=== PATIENT | female | born 1950 | race Caucasian/White ===

== ENCOUNTER 2017-05-19 15:21 | Outpatient (RCR) | payer MEDICARE, MEDICAID, SELFPAY ==
--- NOTE | 2017-05-19 15:53 | HMH.RHOPSOAP ---
Rehab OP Soap Note Rehab OP SOAP Start: 05/19/17 15:48 Freq: Status: Active Protocol: Document 05/19/17 15:48 ZARINA (Rec: 05/19/17 15:53 ZARINA [id number]) Electronically Signed By Herminio Mejia, PT 05/19/17 15:48 Rehab OP SOAP Subjective Subjective PT PRESENTS FOR W/C EVAL 2NDRY TO MS, MM WEAKNESS, LUMBAR SPONDYLOSIS, AND PHYSICAL DEBILITY Objective Objective Notes W/C EVAL EXECUTED IN CONJUNCTION WITH SOLOMON GOTTLIEB, REHAB MEDICAL Assessment Tolerated Treatment Well Plan Plan DC Patient Therapy time and Billing Physical Therapy Treatment Start Time 15:30 Physical Therapy Treatment End Time 15:50 Total Treatment Time 20 Scooter/Electric WC Eval Time 15 Scooter/Electric WC Billing Units 1 Medicare? Yes
== END 2017-05-19 15:22 | disposition home or self-care (01) ==
LOC: PT 15:21
PROVIDERS: Family Provider Internal Medicine Adolescent Medicine; Visit Provider Nurse Practitioner Family
DX: G35 Multiple sclerosis (principal); M62.81 Muscle weakness (generalized); M43.06 Spondylolysis, lumbar region; R53.81 Other malaise
CPT/HCPCS: 97542

== ENCOUNTER 2019-05-06 14:12 | Inpatient (IN) ==
--- NOTE | 2019-05-06 14:12 | Emergency Department Note ---
ED Disposition Clinical Impression: Dehydration, Multiple sclerosis, Hypokalemia Upper respiratory infection Qualifiers: URI type: unspecified URI Qualified Code(s): J06.9 - Acute upper respiratory infection, unspecified Pressure ulcer Qualifiers: Pressure injury location: unspecified location Pressure injury stage: unspecified pressure injury stage Qualified Code(s): L89.90 - Pressure ulcer of unspecified site, unspecified stage Fall Qualifiers: Encounter type: initial encounter Qualified Code(s): W19.XXXA - Unspecified fall, initial encounter Disposition: Admitted as Observation Condition on Discharge: Fair - Critical Care Critical Care Time: No Attestation: On , the high probability of a clinically significant, sudden or life threatening deterioration of the following system(s) required my full and direct attention, intervention and personal management. The time I documented below is in addition to time spent performing reported procedures but includes the following listed in this critical care notation. Medical Decision Making - Rajesh Inquiry Pt receiving controlled substance: No Vital Signs: 05/06/19 14:10 05/06/19 15:40 05/06/19 16:00 Temperature 98.2 F 99.9 F H 100.1 F H Temperature Source Oral Rectal Rectal Pulse Rate [Right] 93 H 93 H Respiratory Rate 20 20 Blood Pressure [Right Arm] 161/89 H 142/72 H Blood Pressure Mean [Right Arm] 113 95 02 Sat by Pulse Oximetry 96 92 L Oxygen Delivery Method Room Air - Lab Data Lab Results 05/06/19 14:48: Total Creatine Kinase 974 H*, Troponin I 0.03 05/06/19 14:48: Urine Color Yellow, Urine Appearance Clear, Urine pH 6.5, Ur Specific [place] 1.025, Urine Protein 1+, Urine Glucose (UA) Negative, Urine Ketones 2+, Urine Blood 2+, Urine Nitrate Negative, Urine Bilirubin 2+ A, Urine Urobilinogen 0.2, Ur Leukocyte Esterase Negative, Urine RBC 3-5, Urine WBC Occasional, Ur Squamous Epith Cells Occasional, Urine Bacteria Trace 05/06/19 14:48: WBC 10.7, RBC 5.11, Hgb 15.7, Hct 46.8, MCV 91.6, MCH 30.8, MCHC 33.6, RDW 12.3, Plt Count 223, MPV 9.3, Neut % (Auto) 88.0 H, Lymph % (Auto) 6.8 L, [place] % (Auto) 5.0, Eos % (Auto) 0.2, Baso % (Auto) 0.1, Neut # (Auto) 9.4 H, Lymph # (Auto) 0.7, [place] # (Auto) 0.5, Eos # (Auto) 0.0, Baso # (Auto) 0.0, Total Counted 100, Neutrophils % (Manual) 81 H, Lymphocytes % (Manual) 9 L, Monocytes % (Manual) 8, Metamyelocytes % 2.0 H, Platelet Estimate Normal, RBC Morphology Normal 05/06/19 14:48: Sodium 147 H, Potassium 3.0 L, Chloride 106, Carbon Dioxide 32 H , Anion Gap 12.0, BUN 46 H, Creatinine 0.80, Estimated Creat Clear 39, Estimated GFR 72, Est GFR ( Amer) 87, Glucose 126 H, Calcium 10.4 H, Total Bilirub in 1.3, AST 121 H, ALT 90 H, Alkaline Phosphatase 80, Total Protein 7.7, Albumin 4.3, Globulin 3.4 H, Albumin/Globulin Ratio 1.3 05/06/19 14:48: Lactate 1.3 05/06/19 14:48: Influenza Type A Ag Negative, Influenza Type B Ag Negative 05/06/19 14:48: Group A Strep Rapid Negative Result diagrams: 05/06/19 14:48 05/06/19 14:48 Orders (Tests/Meds): ED MEDICATIONS Generic Name Dose Route Start Last Admin Trade Name Freq PRN Reason Stop Dose Admin Acetaminophen 650 mg 05/06/19 17:03 Acetaminophen 325mg Tab PO 06/05/19 17:02 Q4HP PRN As Needed for Fever or Pain Levofloxacin/Dextrose 750 mg in 150 mls @ 100 mls/hr 05/06/19 17:15 Levofloxacin 750mg/150ml Premix IV 05/20/19 17:14 Q24H STAN Protocol Sodium Chloride 1,000 mls @ 100 mls/hr 05/06/19 17:15 Sod Chlor 0.9% 1000ml Bag IV 06/05/19 17:14 .Q10H STAN Ondansetron HCl 4 mg 05/06/19 17:03 Zofran 4mg/2ml Vial IV 06/05/19 17:02 Q8HP PRN Nausea Sodium Chloride 10 ml 05/06/19 17:03 Saline Flush 10ml Syringe IV 06/05/19 17:02 NEEDED PRN Maintain IV Site Discontinued Medications Generic Name Dose Route Start Last Admin Trade Name Gian PRN Reason Stop Dose Admin Acetaminophen 650 mg 05/06/19 16:11 05/06/19 16:12 Acetaminophen 325mg Tab PO 05/06/19 16:12 650 mg ONCE ONE Administration Potassium Chloride 40 meq 05/06/19 16:25 Klor-Con 20meq Tablet PO 05/06/19 16:26 ONCE ONE Sodium Chloride 1,000 ml 05/06/19 14:36 05/06/19 15:26 Sod Chlor 0.9% 1000ml Bag IV 05/06/19 14:37 1,000 ml BOLUS ONE Administration Tetanus/Diphtheria Toxoids 0.5 ml 05/06/19 17:01 Tenivac 0.5ml Syringe IM 05/06/19 17:02 .ONCE ONE ORDERS Category Date Time Status Troponin I Q3H Lab 05/06/19 17:30 Ordered Troponin I Q3H Lab 05/06/19 20:30 Ordered Blood Culture Stat Micro 05/06/19 14:48 Received Strep Screen Confirmation Stat Micro 05/06/19 14:48 Received ECG Request by /Brijesh Stat Y 05/06/19 14:28 Ordered - Radiology Data #1 Image(s): Chest, Pelvis, Hip, Knee (bilateral) Image Reviewed: Yes I have reviewed radiologist's interpretation Preliminary Findings: Normal/NAD - CT Data CT Scan: Head, C-Spine Time Received: 15:[address] Reviewed: Yes: I have viewed the radiologist's interpretation Preliminary Findings: Normal/NAD - ECG Data Tracing #1 EKG interpreted by Rigo Mack MD: Significant artifact present, limiting interpretation Rhythm: sinus Rate: 83 [place]: normal Ectopy: none Conduction: normal ST Segment Changes: Nonspecific T Wave Changes: Nonspecific Q Waves: none No evidence of acute ischemia or injury - Physician Consults Physician Consulted: Lidia Akins Time: 15:59 Reason -: Admission Comment/Response: Agrees to admit the patient to the hospital. We discussed the patient's clinical information, including history, exam, laboratory and radiology results and ED course. Per hospital procedure, I will write temporary bridge inpatient orders on the patient. Levaquin. Specific orders requested by the admitting physician: General Adult HPI - General Chief complaint: Fall Stated complaint: FALL Time Seen by Provider: 05/06/19 14:22 - History of Present Illness HPI narrative: Brought in by [facility]. The patient is a poor historian. She has MS. She says that she fell while getting out of the shower. She is uncertain of the time/day, initially stating it was , but later estimating that it was 4 to 5 days ago, which appears more consistent with her wounds. She apparently is in a wheelchair, but able to transfer herself. She says that when she fell she had to scoot herself on the carpet causing skin wounds to her knees, left hip area. He says she also hit the left side of her face. She also says for the past 3-year-old or 4 days she has been sick with a fever. She says she has nausea, but thinks it is because her mouth is dry. She is noted to be coughing and says she has had some shortness of breath, but also blames that on dry mouth and throat. She denies diarrhea. - Related Data Home Medications Medication Instructions Recorded Confirmed No Known Home Medications 05/06/19 05/06/19 Unobtainable 05/06/19 05/06/19 Allergies Allergy/AdvReac Type Severity Reaction Status Date / Time No Known Allergies Allergy Unverified 01/27/17 14:38 [facility] History - Hepatitis A Screen Attestation statement:: This patient has been screened for Hepatitis A risk factors. I have reviewed the patient's past medical history: Yes ROS Obtained: Yes All systems reviewed & no additional complaints - Constitutional Constitutional: Reports fever(s) - Cardiovascular Cardiovascular: Denies chest pain - Respiratory Respiratory: Yes cough, Yes dyspnea - Gastrointestinal Gastrointestingal: Denies: abdominal pain, diarrhea, vomiting - Musculoskeletal Musculoskeletal: Reports as per HPI Physical Exam - General General appearance: alert, in no apparent distress, cachectic - Head Head exam: atraumatic, normocephalic - Eye Eye exam: Present: normal appearance, EOMI - ENT ENT exam: Present: mucous membranes dry - Neck Neck exam: Present: normal inspection, trachea midline - Chest Chest inspection: Present: normal inspection, symmetric chest wall rise - Respiratory Respiratory exam: Present: normal lung sounds bilaterally. Absent: respiratory distress - Cardiovascular Cardiovascular exam: Present: regular rate, normal rhythm, normal heart sounds - Abdominal Exam Abdominal exam: Present: soft. Absent: distention, tenderness - Extremities Exam Extremities exam: Present: normal capillary refill - Neurological Exam Neurological exam: Present: alert - Psychiatric Psychiatric exam: Present: normal affect, normal mood - Skin Skin exam: Present: warm, dry - Other Other exam information: Hand sized areas of erythema with eschars on the left side of both knees and left lateral hip consistent with friction ann and pressure ulcers. The eschar on the hip is black and necrotic appearing. She has some mild skin breakdown over the sacrum as well.
[2019-05-06 16:06] LABS: Microscopic, Urine URINE MICROSCOPIC (MICROSCOPIC)
[2019-05-06 16:11] LABS: Basophils % 0.1 % (0.1-2.0); Eosinophils % 0.2 % (0.1-12.0); Hematocrit 46.8 % (37.0-47.0); Hemoglobin 15.7 g/dL (12.2-16.2); Lymphocytes # 0.7 K/mm3 (0.7-4.5); Lymphocytes % 6.8 % (10-50); Mean Corpuscular HGB Conc 33.6 g/dL (31.8-35.4); Mean Corpuscular Volume 91.6 fl (81-99); Mean Platelet Volume 9.3 fl (7.4-10.4); Monocytes # 0.5 K/mm3 (0.1-1.0); Neutrophils # 9.4 K/mm3 (1.8-7.8); Platelet Count 223 K/mm3 (142-424); Red Blood Count 5.11 M/mm3 (4.20-5.40); Red Cell Distribution Width 12.3 % (11.5-17.5); White Blood Count 10.7 K/mm3 (4.8-10.8)
[2019-05-06 16:16] LABS: Albumin Level 4.3 g/dl (3.5-5.0); Albumin/Globulin Ratio 1.3 (1.1-1.8); Bilirubin,Total 1.3 mg/dl (0.2-1.3); Calcium 10.4 mg/dl (8.4-10.2); Globulin 3.4 g/dL (1.3-3.2); Total Protein,Serum 7.7 g/dl (6.3-8.2)
[2019-05-06 16:25] LABS: Appearance,Urine CLEAR (Clear); Blood, Urine 2+ (Negative); Color,Urine YELLOW (Yellow); Glucose,Urine (UA) Negative (Negative); Ketones,Urine 2+ (Negative); Leukocyte Esterase,Urine Negative (Negative); PH,Urine 6.5 (5.0-8.5); Protein,Urine 1+ (Negative); Specific Gravity, Urine 1.025 (1.005-1.030); Urobilinogen,Urine 0.2 EU/dl (0.2)
[2019-05-06 16:37] LABS: Bilirubin,Urine 2+ (Negative)
[2019-05-06 16:41] LABS: Bacteria,Urine Trace /lpf; Squamous Epithelial Cell,Urine Occasional #/hpf (0-5); WBC,Urine Occasional #/hpf (0-3)
[2019-05-06 16:42] LABS: Lymphocytes % 9 % (10-50); Monocytes % 8 % (2-9); Neutrophils % 81 % (42-76); Total Cells Counted 100
[2019-05-06 16:43] LABS: RBC Morphology Normal
[2019-05-07 06:23] LABS: Anion Gap 8.2 mEq/L (5-15)
[2019-05-07 06:40] LABS: Calcium 9.2 mg/dl (8.4-10.2)
--- NOTE | 2019-05-07 07:56 | Pharmacy Consult Notes ---
[facility] Pharmacy VTE Monitoring - Patient Demographics Admission date: 05/06/19 Report Date: 05/07/19 Time: 07:56 Allergies/Adverse Reactions: Patient Allergies No Known Allergies Allergy (Unverified 01/27/17 14:38) Height: 1.57 m Weight: 45.841 kg Patient Problems: Current Active Problems Dehydration (Acute) Upper respiratory infection (Acute) Pressure ulcer (Acute) Fall (Acute) Multiple sclerosis (Acute) Hypokalemia (Acute) - VTE Risk Labs: VTE Related Lab Results Hgb 15.7 g/dL (12.2-16.2) 05/06/19 14:48 Hct 46.8 % (37.0-47.0) 05/06/19 14:48 Plt Count 223 K/mm3 (142-424) 05/06/19 14:48 BUN 29 mg/dl (7-17) H D 05/07/19 05:30 Creatinine 0.50 mg/dl (0.52-1.04) L D 05/07/19 05:30 Estimated Creat Clear 40 mL/min (50-200) 05/07/19 05:30 - Prophylaxis VTE Prophylaxis Ordered?: Yes Types of VTE Prophylaxis: TEDS Knee High Location of Applied Device: Bilateral Lower Extremeties
--- NOTE | 2019-05-07 08:18 | History & Physical Report ---
*Admission Date: 05/06/19 *Chief complaint: Fall with rhabdomyolysis *History of present illness: 68-year-old white female with wheelchair-bound status, significant immobility and chronic frailty/chronic protein calorie malnutrition who fell at her home in [facility] 3 days ago, she was finally discovered by her cleaning lady who activated the EMS system and she was brought to the hospital. She was found to be dehydrated. Hypokalemic, evidence of acute kidney injury superimposed on her very low creatinine at baseline and was admitted to the hospital for further evaluation. This morning she feels much better. And has been moving around a little bit. [facility] History I have reviewed the patient's past medical history: Yes Medical History: Denies:: Cancer, Diabetes Mellitus Type 1, Diabetes Mellitus Type 2, MRSA *Have you ever received a pneumonia vaccine?: Yes *Have you received a flu vaccine this season?: Yes Other Medical History: Reports: Arthritis Comment:: Severe arthritis. Severe chronic anxiety. Lives at home, mostly wheelchair-bound Laterality Cases: Bilateral: Other Other Surgeries: Yes: Colonoscopy Amputation: No - *Social History Smoking Status: Former smoker # Packs/Day (cigarettes): 1 Alcohol Intake: never *Occupational Status:: unemployed *Travel in the last 8 weeks: None Family Hx:: Stroke Review of Systems - Review of Systems Review of systems:: pertinent systems reviewed and negative unless documented below Meds Allergies Allergy/AdvReac Type Severity Reaction Status Date / Time No Known Allergies Allergy Unverified 01/27/17 14:38 Exam Vital signs and Labs for Last 24 Hours: Temp Pulse Resp BP Pulse Ox 98.8 F 75 20 131/65 93 L 05/07/19 04:00 05/07/19 04:00 05/07/19 04:00 05/07/19 04:00 05/07/19 04:00 Laboratory Results - last 24 hr 05/06/19 14:48: Total Creatine Kinase 974 H*, Troponin I 0.03 05/06/19 14:48: Urine Color Yellow, Urine Appearance Clear, Urine pH 6.5, Ur Specific [place] 1.025, Urine Protein 1+, Urine Glucose (UA) Negative, Urine Ketones 2+, Urine Blood 2+, Urine Nitrate Negative, Urine Bilirubin 2+ A, Urine Urobilinogen 0.2, Ur Leukocyte Esterase Negative, Urine RBC 3-5, Urine WBC Occasional, Ur Squamous Epith Cells Occasional, Urine Bacteria Trace 05/06/19 14:48: WBC 10.7, RBC 5.11, Hgb 15.7, Hct 46.8, MCV 91.6, MCH 30.8, MCHC 33.6, RDW 12.3, Plt Count 223, MPV 9.3, Neut % (Auto) 88.0 H, Lymph % (Auto) 6.8 L, [place] % (Auto) 5.0, Eos % (Auto) 0.2, Baso % (Auto) 0.1, Neut # (Auto) 9.4 H, Lymph # (Auto) 0.7, [place] # (Auto) 0.5, Eos # (Auto) 0.0, Baso # (Auto) 0.0, Total Counted 100, Neutrophils % (Manual) 81 H, Lymphocytes % (Manual) 9 L, Monocytes % (Manual) 8, Metamyelocytes % 2.0 H, Platelet Estimate Normal, RBC Morphology Normal 05/06/19 14:48: Sodium 147 H, Potassium 3.0 L, Chloride 106, Carbon Dioxide 32 H , Anion Gap 12.0, BUN 46 H, Creatinine 0.80, Estimated Creat Clear 39, Estimated GFR 72, Est GFR ( Amer) 87, Glucose 126 H, Calcium 10.4 H, Total Bilirubin 1.3, AST 121 H, ALT 90 H, Alkaline Phosphatase 80, Total Protein 7.7, Albumin 4.3, Globulin 3.4 H, Albumin/Globulin Ratio 1.3 05/06/19 14:48: Lactate 1.3 05/06/19 14:48: Influenza Type A Ag Negative, Influenza Type B Ag Negative 05/06/19 14:48: Group A Strep Rapid Negative 05/06/19 17:50: Troponin I 0.04 H 05/06/19 20:47: Troponin I 0.04 H 05/07/19 05:30: Sodium 138, Potassium 3.2 L, Chloride 108 H, Carbon Dioxide 25 D, Anion Gap 8.2, BUN 29 H D, Creatinine 0.50 L D, Estimated Creat Clear 40, Estimated GFR 123, Est GFR ( Amer) 149 D, Glucose 105 H, Calcium 9.2 D I & O for Last 24 hours: Intake & Output 05/04/19 05/05/19 05/06/1928/20 11:59 11:59 11:59 11:59 Intake Total 2293 / 2293 Output Total 900 / 900 Balance 1393 / 1393 Weight 101 lb 1 oz Narrative: Patient is pleasant, talkative, her's previous speech impediment as noted. She is alert, oriented x3. Anterior lung belle are clear, heart rate regular. Abdomen soft. Extremities are cachectic, previously noted contractures in lower extremities with low muscle tone and hyperreflexia. Skin bruises as noted through the ER and nursing pictoral documentation. Assessment and Plan (1) Dehydration Current visit: Yes Status: Acute Category: Medical Code(s): E86.0 - Dehydration Overall improving. Continue fluids. Replace potassium. Patient will need PT/OT evaluation. She may need long-term care evaluation but at the very least will need ramped up home health services. Care management consultation for this. (2) Fall Current visit: Yes Status: Acute Qualifiers: Encounter type: initial encounter Qualified Code(s): W19.XXXA - Unspecified fall, initial encounter Category: Medical Code(s): W19.XXXA - Unspecified fall, initial encounter (3) Hypokalemia Current visit: Yes Status: Acute Category: Medical Code(s): E87.6 - Hypokalemia (4) Multiple sclerosis Current visit: Yes Status: Acute Category: Medical Code(s): G35 - Multiple sclerosis (5) Pressure ulcer Current visit: Yes Status: Acute Qualifiers: Pressure injury location: unspecified location Pressure injury stage: unspecified pressure injury stage Qualified Code(s): L89.90 - Pressure ulcer of unspecified site, unspecified stage Category: Medical Code(s): L89.90 - Pressure ulcer of unspecified site, unspecified stage - Assessment and plan all Dx Assessment and Plan for all problems:: Of note patient was started on antibiotics in the ER. I can find no source of infection. Clear chest x-ray. Clear lungs. Non-bothersome urinalysis. Blood cultures pending. We will hold levofloxacin.
--- NOTE | 2019-05-07 13:26 | Pharmacy Consult Notes ---
- Pharmacy Consult Date: 05/07/19 Time: 13:25 Referring provider: DR. NAIDU Reason for Consult:: VANCOMYCIN DOSING Allergies and ADEs:: Allergies Allergy/AdvReac Type Severity Reaction Status Date / Time No Known Allergies Allergy Unverified 01/27/17 14:38 Home Medications:: Home Medications Medication Instructions Recorded Confirmed Type Alendronate Sodium [Fosamax 70mg 70 mg PO WEEKLY 05/07/19 05/07/19 History Tablet] Buspirone HCl [Buspar 10mg 10 mg PO BID 05/07/19 05/07/19 History tablet] Calcium Carbonate/Vitamin D3 1 each PO BID 05/07/19 05/07/19 History [[place] 500-Vit D3 200 Caplet] Ergocalciferol (Vitamin D2) 50,000 unit PO WEEKLY 05/07/19 05/07/19 History [Drisdol 50,000 units (1.25mg) capsule] Escitalopram Oxalate [Lexapro] 10 mg PO DAILY 05/07/19 05/07/19 History Fluticasone Propionate [Flonase 1 spr NS BID 05/07/19 05/07/19 History 50mcg nasal spray 16gm] Hydrocodone/Acetaminophen [[place] 1 each PO Q12HP PRN 05/07/19 05/07/19 History 5-325 Tablet] Metoprolol Succinate [Toprol XL 50 mg PO DAILY 05/07/19 05/07/19 History 50mg Tablet] polyethylene glycoL 3350 17 gm PO DAILY 05/07/19 05/07/19 History [Polyethylene Glycol 3350] Height: 1.57 m Weight: 45.841 kg Laboratory Results:: Laboratory Results - last 24 hr 05/06/19 14:48: Total Creatine Kinase 974 H*, Troponin I 0.03 05/06/19 14:48: Urine Color Yellow, Urine Appearance Clear, Urine pH 6.5, Ur Specific [place] 1.025, Urine Protein 1+, Urine Glucose (UA) Negative, Urine Ketones 2+, Urine Blood 2+, Urine Nitrate Negative, Urine Bilirubin 2+ A, Urine Urobilinogen 0.2, Ur Leukocyte Esterase Negative, Urine RBC 3-5, Urine WBC Occasional, Ur Squamous Epith Cells Occasional, Urine Bacteria Trace 05/06/19 14:48: WBC 10.7, RBC 5.11, Hgb 15.7, Hct 46.8, MCV 91.6, MCH 30.8, MCHC 33.6, RDW 12.3, Plt Count 223, MPV 9.3, Neut % (Auto) 88.0 H, Lymph % (Auto) 6.8 L, [place] % (Auto) 5.0, Eos % (Auto) 0.2, Baso % (Auto) 0.1, Neut # (Auto) 9.4 H, Lymph # (Auto) 0.7, [place] # (Auto) 0.5, Eos # (Auto) 0.0, Baso # (Auto) 0.0, Total Counted 100, Neutrophils % (Manual) 81 H, Lymphocytes % (Manual) 9 L, Monocytes % (Manual) 8, Metamyelocytes % 2.0 H, Platelet Estimate Normal, RBC Morphology Normal 05/06/19 14:48: Sodium 147 H, Potassium 3.0 L, Chloride 106, Carbon Dioxide 32 H , Anion Gap 12.0, BUN 46 H, Creatinine 0.80, Estimated Creat Clear 39, Estimated GFR 72, Est GFR ( Amer) 87, Glucose 126 H, Calcium 10.4 H, Total Bilirubin 1.3, AST 121 H, ALT 90 H, Alkaline Phosphatase 80, Total Protein 7.7, Albumin 4.3, Globulin 3.4 H, Albumin/Globulin Ratio 1.3 05/06/19 14:48: Lactate 1.3 05/06/19 14:48: Influenza Type A Ag Negative, Influenza Type B Ag Negative 05/06/19 14:48: Group A Strep Rapid Negative 05/06/19 17:50: Troponin I 0.04 H 05/06/19 20:47: Troponin I 0.04 H 05/07/19 05:30: Sodium 138, Potassium 3.2 L, Chloride 108 H, Carbon Dioxide 25 D, Anion Gap 8.2, BUN 29 H D, Creatinine 0.50 L D, Estimated Creat Clear 40, Estimated GFR 123, Est GFR ( Amer) 149 D, Glucose 105 H, Calcium 9.2 D Medical History: Denies:: Cancer, Diabetes Mellitus Type 1, Diabetes Mellitus Type 2, MRSA Assessment and Plan (1) Dehydration Current visit: Yes Status: Acute Category: Medical Code(s): E86.0 - Dehydration (2) Fall Current visit: Yes Status: Acute Qualifiers: Encounter type: initial encounter Qualified Code(s): W19.XXXA - Unspecified fall, initial encounter Category: Medical Code(s): W19.XXXA - Unspecified fall, initial encounter (3) Hypokalemia Current visit: Yes Status: Acute Category: Medical Code(s): E87.6 - Hypokalemia (4) Multiple sclerosis Current visit: Yes Status: Acute Category: Medical Code(s): G35 - Multiple sclerosis (5) Pressure ulcer Current visit: Yes Status: Acute Qualifiers: Pressure injury location: unspecified location Pressure injury stage: unspecified pressure injury stage Qualified Code(s): L89.90 - Pressure ulcer of unspecified site, unspecified stage Category: Medical Code(s): L89.90 - Pressure ulcer of unspecified site, unspecified stage - Assessment and plan all Dx Assessment and Plan for all problems:: BASED ON PATIENT FACTORS, RECOMMEND VANCOMYCIN 1 GM IV Q18H. PHARMACY WILL FOLLOW DAILY AND ADJUST APPROPRIATE.
[2019-05-08 06:47] LABS: Basophils % 0.2 % (0.1-2.0); Eosinophils # 0.1 K/mm3 (0.0-0.4); Eosinophils % 1.1 % (0.1-12.0); Hematocrit 35.9 % (37.0-47.0); Hemoglobin 11.9 g/dL (12.2-16.2); Lymphocytes # 1.3 K/mm3 (0.7-4.5); Lymphocytes % 14.2 % (10-50); Mean Corpuscular HGB Conc 33.2 g/dL (31.8-35.4); Mean Corpuscular Volume 91.6 fl (81-99); Mean Platelet Volume 9.6 fl (7.4-10.4); Monocytes # 0.4 K/mm3 (0.1-1.0); Monocytes % 4.8 % (1.7-9.3); Neutrophils # 7.3 K/mm3 (1.8-7.8); Neutrophils % 79.7 % (37.0-80.0); Platelet Count 161 K/mm3 (142-424); Red Blood Count 3.92 M/mm3 (4.20-5.40); Red Cell Distribution Width 12.6 % (11.5-17.5); White Blood Count 9.2 K/mm3 (4.8-10.8)
[2019-05-08 06:51] LABS: Anion Gap 6.5 mEq/L (5-15); Calcium 8.4 mg/dl (8.4-10.2)
--- NOTE | 2019-05-08 08:10 | Progress Note ---
Internal Medicine - PN: Subj *Date: 05/08/19 *Time: 08:07 Interval history: Overnight patient did well, eating well. Appears much brighter, is talkative. Pleasant. Ate 95% of her breakfast. Exam Vital signs and Labs for Last 24 Hours: Temp Pulse Resp BP Pulse Ox 97.9 F 76 18 126/66 94 L 05/08/19 04:00 05/08/19 04:00 05/08/19 04:00 05/08/19 04:00 05/08/19 04:00 Laboratory Results - last 24 hr 05/08/19 06:18: WBC 9.2, RBC 3.92 L, Hgb 11.9 L, Hct 35.9 L, MCV 91.6, MCH 30.4, MCHC 33.2, RDW 12.6, Plt Count 161 D, MPV 9.6, Neut % (Auto) 79.7, Lymph % (Auto) 14.2, [place] % (Auto) 4.8, Eos % (Auto) 1.1, Baso % (Auto) 0.2, Neut # (Auto) 7.3, Lymph # (Auto) 1.3, [place] # (Auto) 0.4, Eos # (Auto) 0.1, Baso # (Auto) 0.0 05/08/19 06:18: Sodium 135 L, Potassium 3.5, Chloride 108 H, Carbon Dioxide 24, Anion Gap 6.5, BUN 15 D, Creatinine 0.40 L, Estimated Creat Clear 42, Estimated GFR 159, Est GFR ( Amer) 193 D, Glucose 101 H, Calcium 8.4 I & O for Last 24 hours: Intake & Output 05/05/19 05/06/19 05/07/19 05/08/19 11:59 11:59 11:59 11:59 Intake Total 2533 / 2533 3036 / 3036 Output Total 900 / 900 950 / 950 Balance 1633 / 1633 2086 / 2086 Weight 101 lb 1 oz 108 lb 6 oz Microbiology Reports for the Last 24 Hours: Microbiology 05/06/19 14:48 Blood Blood Culture - Preliminary Gram Positive Cocci 05/06/19 14:48 Throat Group A Streptococcus Screen (JAY) - Final Negative for Group A Streptococcus. Narrative: Patient is pleasant, alert, oriented x3. Oropharynx clear. No JVD. No scleral icterus. Lungs have good air movement. Heart rate regular. Abdomen soft. Patient is globally weak, spasticity noted from her multiple sclerosis in her legs as previously noted. Wounds on the knees remain significant, please see nursing picture documentation for details. Assessment and Plan (1) Dehydration Current visit: Yes Status: Acute Category: Medical Code(s): E86.0 - Dehydration Overall improving. Her creatinine levels were significant given her low muscle mass and baseline very low creatinine. These have improved. (2) Fall Current visit: Yes Status: Acute Qualifiers: Encounter type: initial encounter Qualified Code(s): W19.XXXA - Unspecified fall, initial encounter Category: Medical Code(s): W19.XXXA - Unspecified fall, initial encounter PT notes reviewed. Agree with need for skilled care placement. (3) Hypokalemia Current visit: Yes Status: Acute Category: Medical Code(s): E87.6 - Hypokalemia Did well with p.o. replacement. Much more energetic. Check labs tomorrow (4) Multiple sclerosis Current visit: Yes Status: Acute Category: Medical Code(s): G35 - Multiple sclerosis (5) Pressure ulcer Current visit: Yes Status: Acute Qualifiers: Pressure injury location: unspecified location Pressure injury stage: unspecified pressure injury stage Qualified Code(s): L89.90 - Pressure ulcer of unspecified site, unspecified stage Category: Medical Code(s): L89.90 - Pressure ulcer of unspecified site, unspecified stage Agree with need for skilled care placement. Plan for evaluation for bed availability tomorrow. (6) Rhabdomyolysis Current visit: Yes Status: Acute Category: Medical Code(s): M62.82 - Rhabdomyolysis Clinically improving. Significant CPK elevation given her very low muscle mass. Check labs tomorrow morning (7) Bacteremia Current visit: Yes Status: Acute Category: Medical Code(s): R78.81 - Bacteremia Awaiting culture results, currently on vancomycin. - Assessment and plan all Dx Assessment and Plan for all problems:: Patient is improving but needs skilled care placement. We discussed with patient possibility of [facility] [place] given need for a wound care physician evaluation which is available at that facility. She is agreeable to discussing this.
--- NOTE | 2019-05-08 16:05 | Electrocardiograph Report ---
APPROVED REPORT Exam: Resting ECG HR:83 bpm ECG Measurements Heart Rate 83 AXES RI 114 P 74 QRSd 70 QRS 29 QT 380 T-35 QTc 446 <Conclusion> Normal sinus rhythm Left atrial abnormality ST & T wave abnormality, consider inferior ischemia ST & T wave abnormality, consider anterior ischemia Abnormal ECG Electronically signed by : Julio Cesar Akins, 05/08/2019 16:05:37
[2019-05-09 06:33] LABS: Basophils % 0.3 % (0.1-2.0); Eosinophils # 0.3 K/mm3 (0.0-0.4); Eosinophils % 3.1 % (0.1-12.0); Hematocrit 35.4 % (37.0-47.0); Hemoglobin 11.5 g/dL (12.2-16.2); Lymphocytes # 1.3 K/mm3 (0.7-4.5); Lymphocytes % 15.4 % (10-50); Mean Corpuscular HGB Conc 32.4 g/dL (31.8-35.4); Mean Platelet Volume 8.9 fl (7.4-10.4); Monocytes # 0.4 K/mm3 (0.1-1.0); Monocytes % 4.6 % (1.7-9.3); Neutrophils # 6.3 K/mm3 (1.8-7.8); Neutrophils % 76.6 % (37.0-80.0); Platelet Count 174 K/mm3 (142-424); Red Blood Count 3.81 M/mm3 (4.20-5.40); Red Cell Distribution Width 12.6 % (11.5-17.5); White Blood Count 8.2 K/mm3 (4.8-10.8)
[2019-05-09 06:42] LABS: Anion Gap 5.7 mEq/L (5-15); Calcium 8.2 mg/dl (8.4-10.2)
--- NOTE | 2019-05-09 07:52 | Progress Note ---
Internal Medicine - PN: Subj *Date: 05/09/19 *Time: 07:51 Interval history: Patient is pleasant, talkative, eating breakfast well. Exam Vital signs and Labs for Last 24 Hours: Temp Pulse Resp BP Pulse Ox 98.2 F 75 18 136/74 96 05/09/19 04:00 05/09/19 04:00 05/09/19 04:00 05/09/19 04:00 05/09/19 04:00 Laboratory Results - last 24 hr 05/09/19 06:15: WBC 8.2, RBC 3.81 L, Hgb 11.5 L, Hct 35.4 L, MCV 93.0, MCH 30.1, MCHC 32.4, RDW 12.6, Plt Count 174, MPV 8.9, Neut % (Auto) 76.6, Lymph % (Auto) 15.4, [place] % (Auto) 4.6, Eos % (Auto) 3.1, Baso % (Auto) 0.3, Neut # (Auto) 6.3, Lymph # (Auto) 1.3, [place] # (Auto) 0.4, Eos # (Auto) 0.3, Baso # (Auto) 0.0 05/09/19 06:15: Sodium 135 L, Potassium 3.7, Chloride 109 H, Carbon Dioxide 24, Anion Gap 5.7, BUN 10 D, Creatinine 0.50 L D, Estimated Creat Clear 44, Estimated GFR 123, Est GFR ( Amer) 149 D, Glucose 94, Calcium 8.2 L, Total Creatine Kinase 126 D I & O for Last 24 hours: Intake & Output 05/06/19 05/07/19 05/08/19 05/09/19 11:59 11:59 11:59 11:59 Intake Total 2533 / 2533 3396 / 3396 2709 / 2709 Output Total 900 / 900 950 / 950 Balance 1633 / 1633 2446 / 2446 2709 / 2709 Weight 101 lb 1 oz 108 lb 6 oz 113 lb 7 oz Microbiology Reports for the Last 24 Hours: Microbiology 05/06/19 14:48 Blood Blood Culture - Preliminary Staphylococcus aureus 05/06/19 14:48 Blood Blood Culture - Preliminary NO GROWTH AFTER 48 HOURS 05/06/19 14:48 Throat Group A Streptococcus Screen (JAY) - Final Negative for Group A Streptococcus. Narrative: Patient is sitting up in bed. No change in exam. Oropharynx clear and moist. No JVD. Heart rate regular. Lungs clear. Abdomen soft. Previously noted neurologic and weakness noted. Bruising unchanged. Assessment and Plan (1) Dehydration Current visit: Yes Status: Acute Category: Medical Code(s): E86.0 - Dehydration (2) Fall Current visit: Yes Status: Acute Qualifiers: Encounter type: initial encounter Qualified Code(s): W19.XXXA - Unspecified fall, initial encounter Category: Medical Code(s): W19.XXXA - Unspecified fall, initial encounter (3) Hypokalemia Current visit: Yes Status: Acute Category: Medical Code(s): E87.6 - Hypokalemia (4) Multiple sclerosis Current visit: Yes Status: Acute Category: Medical Code(s): G35 - Multiple sclerosis (5) Pressure ulcer Current visit: Yes Status: Acute Qualifiers: Pressure injury location: unspecified location Pressure injury stage: unspecified pressure injury stage Qualified Code(s): L89.90 - Pressure ulcer of unspecified site, unspecified stage Category: Medical Code(s): L89.90 - Pressure ulcer of unspecified site, unspecified stage (6) Rhabdomyolysis Current visit: Yes Status: Acute Category: Medical Code(s): M62.82 - Rhabdomyolysis (7) Bacteremia Current visit: Yes Status: Acute Category: Medical Code(s): R78.81 - Bacteremia - Assessment and plan all Dx Assessment and Plan for all problems:: Overall status improved. Await senior care disposition. Continue current therapy
--- NOTE | 2019-05-09 10:05 | Discharge Summary ---
General - General Admission date:: 05/07/19 Discharge date: 05/09/19 HPI HPI: 68-year-old white female with wheelchair-bound status, significant immobility and chronic frailty/chronic protein calorie malnutrition who fell at her home in [facility] 3 days ago, she was finally discovered by her cleaning lady who activated the EMS system and she was brought to the hospital. She was found to be dehydrated. Hypokalemic, evidence of acute kidney injury superimposed on her very low creatinine at baseline and was admitted to the hospital for further evaluation. This morning she feels much better. And has been moving around a little bit. Hospital Course Hospital Course: Patient was admitted, found to have rhabdomyolysis and acute kidney injury based on elevated CPK and doubling of her baseline creatinine. Treated with IV fluids and did much better. Wound care was initiated for pressure ulcers of her knees because of her extended time down at her apartment. She had a low-grade fever, was worked up with blood cultures which showed one bottle positive for MRSA. This was treated with vancomycin and she tolerated this very nicely. Current dose of vancomycin is 1 g every 18 hours. Patient has reached maximum medical improvement in the hospital, she has been recommended to continue PT/OT/wound care, and she will be transferred to the [facility] in [place] for ongoing PT/OT/wound care evaluation. She will need to continue intravenous vancomycin, 1 g every 18 hours for 4 more doses. Repeat blood cultures were drawn today at the hospital to document clearance before discharge per Diet and activity will otherwise be as tolerated. Prognosis is good. Objective Vital signs: Temp Pulse Resp BP Pulse Ox 98.0 F 83 20 156/68 H 90 L 05/09/19 08:00 05/09/19 08:00 05/09/19 08:00 05/09/19 08:00 05/09/19 08:00 Narrative: Examination shows that she is pleasant, talkative, oriented x3. Speech deficits/dysarthria from her multiple sclerosis but communication somewhat difficult but it is possible. 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 Appears cachectic at baseline. Wounds on these and elbows as documented in nursing pictorial representations. Oropharynx moist, no lesions. Lungs have good air movement. Heart regular. Abdomen soft but cachectic. Neurologic exam grossly abnormal but at baseline. Results Labs on day of discharge: Labs from last 24 hours 05/09/19 05/09/19 06:15 06:15 WBC 8.2 RBC 3.81 L Hgb 11.5 L Hct 35.4 L MCV 93.0 MCH 30.1 MCHC 32.4 RDW 12.6 Plt Count 174 MPV 8.9 Neut % (Auto) 76.6 Lymph % (Auto) 15.4 [place] % (Auto) 4.6 Eos % (Auto) 3.1 Baso % (Auto) 0.3 Neut # (Auto) 6.3 Lymph # (Auto) 1.3 [place] # (Auto) 0.4 Eos # (Auto) 0.3 Baso # (Auto) 0.0 Sodium 135 L Potassium 3.7 Chloride 109 H Carbon Dioxide 24 Anion Gap 5.7 BUN 10 D Creatinine 0.50 L D Estimated Creat Clear 44 Estimated GFR 123 Est GFR ( Amer) 149 D Glucose 94 Calcium 8.2 L Total Creatine Kinase 126 D Preliminary micro results at discharge 05/06/19 14:48 Blood Culture - Preliminary Blood Staphylococcus aureus 05/06/19 14:48 Blood Culture - Preliminary Blood NO GROWTH AFTER 48 HOURS DS: Diagnosis - Discharge Diagnosis (1) Dehydration Status: Resolved (2) Fall Status: Acute (3) Hypokalemia Status: Resolved (4) Multiple sclerosis Status: Chronic (5) Pressure ulcer Status: Acute (6) Rhabdomyolysis Status: Resolved (7) Bacteremia Status: Acute Problem details: Secondary to MRSA Discharge Plan - Patient Discharge Instructions ACTIVITY: Up with assistance DIET: continue same diet Patient Instructions: How to Prevent Pressure Ulcers, DI for Dehydration -- Adult, DI for Pressure Sores, DI for Viral Upper Respiratory Infection -- Adult, DI for Hypokalemia, How to Prevent Falls - Follow up Plan Follow up with: Jenn Jeter APRN [Primary Care Provider] - Disposition: er [facility] Home Medications: Home Medications Medication Instructions Recorded Confirmed Type Alendronate Sodium [Fosamax 70mg 70 mg PO WEEKLY 05/07/19 05/07/19 History Tablet] Buspirone HCl [Buspar 10mg 10 mg PO BID 05/07/19 05/07/19 History tablet] Calcium Carbonate/Vitamin D3 1 each PO BID 05/07/19 05/07/19 History [[place] 500-Vit D3 200 Caplet] Ergocalciferol (Vitamin D2) 50,000 unit PO WEEKLY 05/07/19 05/07/19 History [Drisdol 50,000 units (1.25mg) capsule] Escitalopram Oxalate [Lexapro] 10 mg PO DAILY 05/07/19 05/07/19 History Fluticasone Propionate [Flonase 1 spr NS BID 05/07/19 05/07/19 History 50mcg nasal spray 16gm] Hydrocodone/Acetaminophen [[place] 1 each PO Q12HP PRN 05/07/19 05/07/19 History 5-325 Tablet] Metoprolol Succinate [Toprol XL 50 mg PO DAILY 05/07/19 05/07/19 History 50mg Tablet] polyethylene glycoL 3350 17 gm PO DAILY 05/07/19 05/07/19 History [Polyethylene Glycol 3350] Prescriptions/Medication Reconciliation: New Vancomycin HCl [Vancomycin 1000mg Adv] 1,000 mg IV Q18H 7 Days vial.port Continued Fluticasone Propionate [Flonase 50mcg nasal spray 16gm] 1 spr NS BID Calcium Carbonate/Vitamin D3 [[place] 500-Vit D3 200 Caplet] 1 each PO BID Ergocalciferol (Vitamin D2) [Drisdol 50,000 units (1.25mg) capsule] 50,000 unit PO WEEKLY polyethylene glycoL 3350 [Polyethylene Glycol 3350] 17 gm PO DAILY Escitalopram Oxalate [Lexapro] 10 mg PO DAILY Buspirone HCl [Buspar 10mg tablet] 10 mg PO BID Alendronate Sodium [Fosamax 70mg Tablet] 70 mg PO WEEKLY Metoprolol Succinate [Toprol XL 50mg Tablet] 50 mg PO DAILY Discontinued Hydrocodone/Acetaminophen [[place] 5-325 Tablet] 1 each PO Q12HP PRN PRN Reason: PAIN - Problem Reconciliation Problems Reviewed?: Yes
== END 2019-05-09 13:27 | DRG 641 ==
LOC: 2ND 14:12 → ER 14:12 → 2ND 18:28
PROVIDERS: ADMIT Emergency Medicine; ATTEND Internal Medicine Adolescent Medicine
CPT/HCPCS: 36415; 70450; 71010; 71045; 72125; 73502; 73562; 80048; 80053; 81001; 82550; 83605; 84484; 85007; 85025; 87040; 87077; 87186; 87275; 87276; 87430; 90471; 90714; 93005; 94761; 96365; 96367; 97110; 97166; 99285; G0378; J1956; J3370